=== PATIENT | male | born 1960 | race Caucasian/White ===

== ENCOUNTER → 2020-02-26 08:51 | Outpatient (BNVA) | payer MEDICARE, SELFPAY | PROVIDERS: Family Provider Family Medicine; PCP Family Medicine; Visit Provider Family Medicine | DX: E78.5 Hyperlipidemia, unspecified (principal); D64.9 Anemia, unspecified; E03.9 Hypothyroidism, unspecified; Z12.11 Encounter for screening for malignant neoplasm of colon; B19.20 Unspecified viral hepatitis C without hepatic coma; D50.8 Other iron deficiency anemias; B18.2 Chronic viral hepatitis C; F17.219 Nicotine dependence, cigarettes, with unspecified nicotine-induced disorders | CPT/HCPCS: 80053; 80061; 82728; 83550; 84443; 85025; 87522 ==

== ENCOUNTER 2020-03-31 06:51 | Day surgery (SDC) | payer MEDICARE, SELFPAY ==
[2020-03-27 15:10] VITALS: BMI 20.3
--- NOTE | 2020-03-31 07:19 | P.ANESASSM_ITS ---
Pre-Anesthetic Assessment Pre-Anesthetic Assessment: Height/Weight: Height 1.83 m Weight 68.039 kg Proposed Procedure: Operation Date: 03/31/20 08:00 Proposed Procedures p EGD with poss biopsy/COLON [id number] 33057 D50.8(Not Applicable) - Walter Gill MD s Colonoscopy poss biospy poss polypectomy(Not Applicable) - Walter Gill MD Social: Social History: Tobacco and No alcohol Exam: Pre-Anes Outpt Exam: alert, oriented x 3, clear to auscultation bilaterally and regular rate & rhythm Airway: Submandibular: WNL Cervical ROM: WNL MP: 1 Dentition: Full (edentureless) History/ROS: No significant history except as noted Pulmonary: Pulmonary: COPD and DIXON CV/HEM: CV/HEM: None reported : : None reported Hepatic: Hepatic: None reported GI: GI: None reported Metabolic: Metabolic: Hyperlipidemia and Thyroid Musc/skel: Musc/skel: OA/DJD Neuropsych: Neuropsych: None reported Anesthetic Plan: ASA status: 3 Anesthesia: Anesthesia Evaluation and MAC Risk of > 500 ml blood loss (7ml/kg in children): No PFSH Anesthesia PFSH: Medical History Anemia Dyslipidemia Erectile disorder due to medical condition in male H/O fracture of pelvis surgical repair with hardware HCV (hepatitis C virus) Hx of pneumothorax Hypothyroidism PAD (peripheral artery disease) S/P angiogram of extremity Surgical History History of shoulder surgery S/P femoropopliteal bypass surgery Family History Father No problems noted. Sister Cancer BREAST Brother CAD (coronary artery disease) Lung disease Denies family history of Anesthesia complication Bleeding disorder Social History Smoking and tobacco status: current every day smoker cigarettes Packs smoked per day: 1 Alcohol intake: former Year of sobriety/quit date alcohol: 2014 Former alcohol use details: 6pk daily Household members: significant other Marital status: Single Current occupational status: disabled History of recent travel: Yes ([place]) Out of state: No Data Anesthesia Cardiac Studies: No Data to Display
[2020-03-31 07:27] VITALS: BP 125/72; PULSE 56; RESP 16; TEMP 36.7; O2SAT 97
[2020-03-31] MEDS: sodium chloride 0.9% 1,000 ML 30 ML IV (07:49)
--- NOTE | 2020-03-31 08:15 | W.PM.OPSUD ---
Surgery/Procedure H&P Update DATE OF PROCEDURE: March 31, 2020 DATE H&P PERFORMED: 03/13/20 H&P UPDATE INFORMATION: I have reviewed H&P completed within last 30 days, I have examined patient prior to procedure and No changes to prior documentation PREOP DIAGNOSIS: Anemia PLANNED PROCEDURE: Operation Date: 03/31/20 08:00 Proposed Procedures p EGD with poss biopsy/COLON [id number] D50.8(Not Applicable) - Walter Gill MD s Colonoscopy poss biospy poss polypectomy(Not Applicable) - Walter Gill MD
[2020-03-31 08:45] VITALS: BP 89/56; PULSE 55; RESP 18; TEMP 36.1; O2SAT 96
--- NOTE | 2020-03-31 08:48 | ANE.PACU2 ---
Inpatient post-anesthesia follow up: Airway intact: Yes Vital signs: Temperature 97.0 F Pulse Rate 55 Respiratory Rate 18 Blood Pressure 89/56 Pulse Oximetry 96 Oxygen Delivery Me thod Room Air Oxygen Flow Rate Fraction of Inspir ed Oxygen Hydration adequate: Yes Nausea and vomiting: No Pain level: 1 Mental status: Baseline
[2020-03-31 08:55] VITALS: BP 103/57; PULSE 49; RESP 18; O2SAT 99
== END 2020-03-31 09:10 | disposition home or self-care (01) ==
PROVIDERS: PCP Family Medicine; Visit Provider Surgery
PROC: 0DJ08ZZ Inspection of Upper Intestinal Tract, Via Natural or Artificial Opening Endoscopic (ICD-10-PCS; CPT 43235; principal; 2020-03-31 08:00)
PROC: 0DJD8ZZ Inspection of Lower Intestinal Tract, Via Natural or Artificial Opening Endoscopic (ICD-10-PCS; CPT 45378; 2020-03-31 08:00)
DX: D64.9 Anemia, unspecified (principal); K29.80 Duodenitis without bleeding; K57.30 Diverticulosis of large intestine without perforation or abscess without bleeding; K64.8 Other hemorrhoids; J44.9 Chronic obstructive pulmonary disease, unspecified; E78.5 Hyperlipidemia, unspecified; M19.90 Unspecified osteoarthritis, unspecified site; F17.210 Nicotine dependence, cigarettes, uncomplicated
CPT/HCPCS: 12345; 43235; G0121; J2704; J7030

== ENCOUNTER → 2020-08-28 09:01 | Outpatient (BNVA) | payer MEDICARE, SELFPAY | PROVIDERS: PCP Family Medicine; Visit Provider Family Medicine | DX: E03.9 Hypothyroidism, unspecified (principal); Z23 Encounter for immunization; R35.1 Nocturia | CPT/HCPCS: 84153; 84443 ==

== ENCOUNTER → 2021-02-12 09:39 | Outpatient (BNVA) | payer MEDICARE, SELFPAY | PROVIDERS: PCP Family Medicine; Visit Provider Family Medicine | DX: E03.9 Hypothyroidism, unspecified (principal); D50.8 Other iron deficiency anemias; E78.5 Hyperlipidemia, unspecified; Z12.5 Encounter for screening for malignant neoplasm of prostate | CPT/HCPCS: 80053; 80061; 82728; 83550; 84443; 85007; 85027; G0103 ==

== ENCOUNTER → 2022-06-17 10:14 | Outpatient (BNVA) | payer MEDICARE, SELFPAY | PROVIDERS: PCP Family Medicine; Visit Provider Family Medicine | DX: I10 Essential (primary) hypertension (principal); B18.2 Chronic viral hepatitis C; E03.9 Hypothyroidism, unspecified; E78.5 Hyperlipidemia, unspecified; F43.23 Adjustment disorder with mixed anxiety and depressed mood; F17.219 Nicotine dependence, cigarettes, with unspecified nicotine-induced disorders | CPT/HCPCS: 80053; 85025; 87522 ==

== ENCOUNTER 2022-10-19 20:57 | Emergency (ER) | payer MEDICARE, SELFPAY ==
[2022-10-19 21:00] VITALS: BMI 21.7
[2022-10-19 21:03] VITALS: PULSE 74; RESP 12
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
[2022-10-19 21:13] LABS: Basophils # 0.1 10^3/uL (0.0-0.1); Basophils % 0.5 %; Eosinophils # 0.1 10^3/uL (0.0-0.8); Eosinophils % 0.7 %; Hemoglobin 9.3 g/dL (11.7-16.6); Lymphocytes % 25.4 %; Mean Corpuscular Hemoglobin 28.7 pg (28.0-34.0); Mean Corpuscular Volume 92.6 fl (80-94); Mean Platelet Volume 9.9 fL (7.4-10.4); Monocytes # 0.7 10^3/uL (0.2-0.9); Monocytes % 5.5 %; Neutrophils % 61.3 %; Nucleated Red Blood Cells # 0.1 /100WBC; Nucleated Red Blood Cells % 0.5 %; Platelet Count 115 10^3/cmm (130-400); Red Blood Count 3.24 10^6/uL (4.1-5.3); Red Cell Distribution Width 15.9 % (12.1-15.1); White Blood Count 11.9 10^3/uL (4.0-10.0)
--- NOTE | 2022-10-19 21:30 | ECG_ITS ---
[facility] Test Date: 2022-10-19 Pat Name: Rohan Fowler Department: Room: Gender: Male Art Educator: : 1960 Requested By: Bautista Crawford Order Number: [id number] Julienne MD: Bull Leary M.D. Measurements Intervals [place] Rate: 101 P: 86 IA: 135 QRS: 87 QRSD: 97 T: 78 QT: 327 QTc: 425 Interpretive Statements SINUS TACHYCARDIA ABNORMAL RHYTHM ECG Compared to ECG 04/04/2018 05:28:34 Sinus rhythm no longer present Electronically Signed On 10-20-2022 20:39:51 PLASTICS FABRICATOR AND ASSEMBLER by Bull Leary M.D. [id number] f
[2022-10-19 21:35] LABS: ABG PCO2 43.6 mmHg (35-45); Arterial Blood Gas Hematocrit 25.6 % (42-52); Base Excess ABG -15.7 mmol/L (-2.0-2.0); Blood Gas Sample Type Arterial; HCO3 ABG 13.1 mmol/L (22-26)
[2022-10-19 21:36] LABS: ABG PH Result 7.09 (7.35-7.45); Blood Gas Sample Site Femoral, right; Oxygen Device AMBU
[2022-10-19 21:51] LABS: Troponin(5th) Baseline 132 ng/L (0-15)
[2022-10-19 22:00] LABS: INR 10.14 (0.8-1.2); Partial Thromboplastin Time > 250.0 SECONDS (23.9-36.7)
--- NOTE | 2022-10-19 22:23 | PC.RESP ---
Patient arrived via EMS, bagging and chest compressions in progress. Assumed bagging with 100% Oxygen. Patient achieved ROSC after several minutes of CPR, placed on vent, SETTINGS: VC/AC. 100 FIO2, RR 16, PEEP 5, VT 450. Patient on vent for 4 to 5 minutes when he lost his pulse and CPR was resumed.
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
[2022-10-19 23:22] LABS: HIV 1 & 2 Antibody Non-Reactive (Non-Reactiv); HIV 1 & 2 Antigen Non-Reactive (Non-Reactiv)
[2022-10-19 23:26] VITALS: BP 0/0; PULSE 0; RESP 0; O2SAT 0
[2022-10-20 00:03] LABS: Hepatitis A Antibody IgM Non-Reactive (Nonreactive); Hepatitis B Core IgM Non-Reactive (Nonreactive); Hepatitis B Surface Antigen Non-Reactive (Nonreactive)
[2022-10-20 00:48] LABS: Hepatitis C Virus Antibody Reactive (Nonreactive)
--- NOTE | 2022-10-21 14:37 | PC.NURSE ---
spoke with son Pa looking for personal items. spoke with greenhouse assistant, no personal items in house, advised son to check with [facility]ca and personal secretary
[2022-10-24 22:44] LABS: HEP C RNA Viral Load Quant <1.18 NOT DETECTED Log IU/mL (NOT DETECTED); HEP C RNA Viral Load Quant <15 NOT DETECTED IU/mL (NOT DETECTED)
== END 2022-10-19 23:28 | disposition expired ==
PROVIDERS: Emergency Provider Emergency Medicine; PCP Family Medicine
DX: I46.9 Cardiac arrest, cause unspecified (principal); S09.90XA Unspecified injury of head, initial encounter; Y09 Assault by unspecified means; F17.210 Nicotine dependence, cigarettes, uncomplicated; E78.5 Hyperlipidemia, unspecified; Z86.19 Personal history of other infectious and parasitic diseases
CPT/HCPCS: 36600; 80074; 82803; 84484; 85025; 85610; 85730; 87522; 87806; 93005; 99285; 99291; J0171; J3490